=== PATIENT | male | born 1970 | race American Indian/Alaskan Native ===

== ENCOUNTER 2020-03-24 14:06 | Emergency (ER) | payer SELFPAY ==
[2020-03-24 14:29] VITALS: BP 140/94
--- NOTE | 2020-03-24 15:18 | Emergency Department Report ---
ED Rash HPI - HPI Chief Complaint: Skin Rash Stated Complaint: FACE BROKE OUT Time Seen by Provider: 03/24/20 14:41 Duration: 2 Days Location: Other (face) Suspected Cause: Unknown Rash Symptoms: Yes Itching, No Facial Swelling, No Tongue/Oral Swelling, No Breathing Difficulties, No Choking Sensation, No Wheezing/Dyspnea, No Peeling, No Blistering, No Fever, No Lightheaded, No Malaise, No Myalgias Severity: mild Other History: This is a 50-year-old male nontoxic, well nourished in appearance, no acute signs of distress presents to the ED with c/o of facial itching, crusting with some clear drainage times several days. Patient denies any trauma or injuries. Patient denies any facial swelling, chest pain, shortn ess of breath, fever, chills, nausea vomiting. Denies any allergies or significant past medical history. ED Review of Systems ROS: Stated complaint: FACE BROKE OUT Other details as noted in HPI Constitutional: denies: chills, fever Eyes: denies: eye pain, eye discharge, vision change ENT: denies: ear pain, throat pain Respiratory: denies: cough, shortness of breath, wheezing Cardiovascular: denies: chest pain, palpitations Endocrine: no symptoms reported Gastrointestinal: denies: abdominal pain, nausea, diarrhea Genitourinary: denies: urgency, dysuria Musculoskeletal: denies: back pain, joint swelling, arthralgia Skin: rash. denies: lesions Neurological: denies: headache, weakness, paresthesias Psychiatric: denies: anxiety, depression Hematological/Lymphatic: denies: easy bleeding, easy bruising ED Past Medical Hx - Past Medical History Previous Medical History?: No - Surgical History Past Surgical History?: No - Social History Smoking Status: Never Smoker Substance Use Type: Alcohol - Medications Home Medications: Home Medications Medication Instructions Recorded Confirmed Last Taken Type Clindamycin [Clindamycin CAP] 300 mg PO Q8H #21 cap 03/24/20 Unknown Rx Rash Exam - Exam General: Vital signs noted. No distress. Alert and acting appropriately. HEENT: No Periorbital Edema, No Conjuctival Injection, No Chemosis, No Perioral Edema, No Tongue Edema, No Uvular Edema, No Compromised Airway, No Drooling Lungs: Yes Good Air Exchange (Normal Breath Sounds), No Wheezes, No Ronchi, No Stridor, No Cough, No Labored Respirations, No Retractions, No Use of Accessory Muscles, No Other Abnormal Lung Sounds Heart: Yes Regular, No Murmur Skin: Yes Other (crusting, redness with some clear drainage), No Urticarial Rash, No Maculopapular Rash, No Morbilliform rash, No Bulla(e), No Excoriations, No Weeping, No Tenderness, No Erythema, No Edema, No Encrustations Other: Positive: Abdomen Normal, Neurologic Normal, Musculoskeletal Normal ED Course Vital Signs 03/24/20 14:27 Temperature 98.4 F Pulse Rate 92 H Respiratory 16 Rate Blood Pressure 140/94 [Left] O2 Sat by Pulse 95 Oximetry - Reevaluation(s) Reevaluation #1: 03/24/20 15:16 Patient is speaking in full sentences with no signs of distress noted. ED Medical Decision Making - Medical Decision Making 50-year-old male that presents with contact dermatitis. Patient is stable and was examined by me. Vital signs are stable. Patient will be discharged with clindamycin. Patient was instructed to follow-up with a primary care and real estate agent doctor in 3-5 days or if symptoms worsen and continue return to emergency room as soon as possible. At time of discharge, the patient does not seem toxic or ill in appearance. No acute signs of distress noted. Patient agrees to discharge treatment plan of care. No further questions noted by the patient. Critical care attestation.: If time is entered above; I have spent that time in minutes in the direct care of this critically ill patient, excluding procedure time. ED Disposition Clinical Impression: Contact dermatitis Qualifiers: Contact dermatitis type: unspecified Contact dermatitis trigger: unspecified trigger Qualified Code(s): L25.9 - Unspecified contact dermatitis, unspecified cause Disposition: DC-01 TO HOME OR SELFCARE Is pt being admited?: No Does the pt Need Aspirin: No Condition: Stable Instructions: Contact Dermatitis (ED) Additional Instructions: Follow-up with a primary care and real estate agent doctor in 3-5 days or if symptoms worsen and continue return to emergency room as soon as possible. [employer] Address: [address] [place] [address] [address], [place] [address] Hours: Monday 9AM5PM Monday 9AM5PM 9AM5PM Monday 9AM5PM Monday 9AM5PM Monday Closed Monday 9AM5PM Prescriptions: Clindamycin [Clindamycin CAP] 300 mg PO Q8H #21 cap Referrals: PRIMARY CARE, [Primary Care Provider] - 3-5 Days KALEIGH WATSON MD [Staff Physician] - 3-5 Days Forms: Work/School Release Form(ED)
== END 2020-03-24 15:50 | disposition home or self-care (01) ==
LOC: ED 14:06
DX: L25.9 Unspecified contact dermatitis, unspecified cause (principal); Z79.899 Other long term (current) drug therapy
CPT/HCPCS: 99282

== ENCOUNTER 2020-12-30 13:51 | Emergency (ER) | payer SELFPAY ==
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
[2020-12-30 15:22] VITALS: BP 120/78
== END 2020-12-30 15:22 | disposition home or self-care (01) ==
LOC: ED 13:51
DX: M54.5 Low back pain (principal); Z72.89 Other problems related to lifestyle; Z79.899 Other long term (current) drug therapy; V89.2XXA Person injured in unspecified motor-vehicle accident, traffic, initial encounter; Y93.89 Activity, other specified; Y92.488 Other paved roadways as the place of occurrence of the external cause; Y99.8 Other external cause status
CPT/HCPCS: 72100; 99283